=== PATIENT | female | born 1985 | race Caucasian/White ===

== ENCOUNTER 2017-12-10 09:59 | Emergency (ER) | payer MEDICAID ==
[~2017-12-10] VITALS: Ht 149.9 cm; Wt 95.1 kg
[~2017-12-10 09:59] MED LIST: ACET325T14 PO; ONDA4TAB7 PO; OXYC-302 PO; PNV1TABL47 PO
[2017-12-10 10:03] VITALS: BP 148/86
[2017-12-10] MEDS ORDERED: ALBU0.63 NEB (10:22)
== END 2017-12-10 11:20 | disposition home or self-care (01) ==
LOC: ED 10:38
DX: H66.003 Acute suppurative otitis media without spontaneous rupture of ear drum, bilateral (principal); H81.399 Other peripheral vertigo, unspecified ear; J02.0 Streptococcal pharyngitis; Z87.891 Personal history of nicotine dependence; Z88.0 Allergy status to penicillin
CPT/HCPCS: 99283

== ENCOUNTER 2018-06-15 14:38 | Emergency (ER) | payer MEDICAID ==
[~2018-06-15] VITALS: Ht 149.9 cm; Wt 96.2 kg
[~2018-06-15 14:38] MED LIST changes: +ALBU0.63 NEB; +CALC300T5 PO
[2018-06-15 14:40] VITALS: BP 123/78
== END 2018-06-15 18:33 | disposition home or self-care (01) ==
LOC: ED 17:48
DX: M25.552 Pain in left hip (principal); M25.562 Pain in left knee; M79.672 Pain in left foot; M25.572 Pain in left ankle and joints of left foot; G80.9 Cerebral palsy, unspecified; Z88.1 Allergy status to other antibiotic agents; Z88.6 Allergy status to analgesic agent; Z88.8 Allergy status to other drugs, medicaments and biological substances; Z87.891 Personal history of nicotine dependence
CPT/HCPCS: 72110; 72190; 99284

== ENCOUNTER 2018-07-22 21:22 | Emergency (ER) | payer MEDICAID ==
[~2018-07-22] VITALS: Ht 149.9 cm; Wt 105.0 kg
[2018-07-22 21:32] VITALS: BP 135/95
== END 2018-07-22 23:22 | disposition home or self-care (01) ==
LOC: ED 23:16
DX: B34.9 Viral infection, unspecified (principal); Z87.891 Personal history of nicotine dependence
CPT/HCPCS: 71046; 99284

== ENCOUNTER 2018-09-14 21:09 | Emergency (ER) | payer MEDICAID, OTHER ==
[~2018-09-14] VITALS: Ht 149.9 cm; Wt 96.9 kg
[2018-09-14 21:14] VITALS: BP 131/95
== END 2018-09-14 22:47 | disposition home or self-care (01) ==
LOC: ED 22:41
DX: S83.92XA Sprain of unspecified site of left knee, initial encounter (principal); X50.1XXA Overexertion from prolonged static or awkward postures, initial encounter; Y93.89 Activity, other specified; Y92.69 Other specified industrial and construction area as the place of occurrence of the external cause; Y99.8 Other external cause status
CPT/HCPCS: 99283

== ENCOUNTER 2019-02-16 07:30 | Outpatient (CLI) | payer BC | END 2019-02-16 23:59 | disposition home or self-care (01) | LOC: CFH 07:30 | PROVIDERS: ATTEND Family Medicine | DX: Z02.9 Encounter for administrative examinations, unspecified (principal) ==

== ENCOUNTER 2019-09-28 20:11 | Emergency (ER) | payer BC, MEDICAID ==
[~2019-09-28] VITALS: Ht 149.9 cm; Wt 89.9 kg
[2019-09-28 20:52] LABS: BASOPHILS # (AUTO) 0.05 x10^3/uL (0-0.1); BASOPHILS % (AUTO) 1 % (0-1); EOSINOPHILS # (AUTO) 0.12 x10^3/uL (0-0.4); EOSINOPHILS % (AUTO) 2 % (1-7); LYMPHOCYTES # (AUTO) 1.87 x10^3/uL (1-3.4); LYMPHOCYTES % (AUTO) 23 % (22-44); MD NO; MEAN CORPUSCULAR HEMOGLOBIN 30.9 pg (27.0-34.8); MEAN CORPUSCULAR HGB CONC 33.3 g/dL (32.4-35.8); MEAN CORPUSCULAR VOLUME 92.9 fL (80-100); MEAN PLATELET VOLUME 8.9 fL (7.4-10.4); MONOCYTES % (AUTO) 5 % (2-9); NEUTROPHILS # (AUTO) 5.58 x10^3/uL (1.8-6.8); NEUTROPHILS % (AUTO) 70 % (42-75); PLATELET COUNT 258 x10^3/uL (130-400); RED CELL DISTRIBUTION WIDTH 12.7 % (9.6-15.2)
[2019-09-28 21:04] LABS: ALANINE AMINOTRANSFERASE 26 U/L (12-78); ALBUMIN 3.6 g/dL (3.4-5.0); ANION GAP 7 mmol/L (5-15); CALCIUM 8.6 mg/dL (8.5-10.1); CHLORIDE 108 mmol/L (98-107); CREATININE 0.86 mg/dL (0.55-1.02)
[2019-09-28 21:08] LABS: ALKALINE PHOSPHATASE 68 U/L (45-117); BILIRUBIN,TOTAL 0.4 mg/dL (0.2-1.0); TOTAL PROTEIN 7.4 g/dL (6.4-8.2); TROPONIN I < 0.015 ng/mL (0.000-0.045)
--- NOTE | 2019-09-28 23:55 | NUR ---
pt to room from [facility] [place]
--- NOTE | 2019-09-29 01:00 | NUR ---
PT D/C HOME WITH RX
[2019-09-29 01:07] VITALS: BP 130/65
== END 2019-09-29 01:10 | disposition home or self-care (01) ==
LOC: ED 09-29 00:50
DX: J06.9 Acute upper respiratory infection, unspecified (principal); F17.210 Nicotine dependence, cigarettes, uncomplicated
CPT/HCPCS: 36415; 71046; 80053; 83880; 84484; 85025; 93005; 99284

== ENCOUNTER 2019-10-16 16:58 | Emergency (ER) | payer MEDICAID ==
[~2019-10-16] VITALS: Ht 149.9 cm; Wt 88.4 kg
--- NOTE | 2019-10-16 17:58 | NUR ---
Pt to room from lobby.
--- NOTE | 2019-10-16 18:02 | NUR ---
PT TO ROOM FROM LOBBY, CHANGED INTO GOWN, UPRIGHT ON GURNEY AWAKE & COMFORTABLE, RESPONDS APPROP TO STAFF, NAD, COMFORT MEASURES PROVIDED, CALL LIGHT WITHIN REACH.
--- NOTE | 2019-10-16 18:52 | NUR ---
report given to aakash
--- NOTE | 2019-10-16 19:02 | NUR ---
Report received from GUZMAN Pressley. This RN to assume care.
[2019-10-16 19:27] LABS: BASOPHILS # (AUTO) 0.06 x10^3/uL (0-0.1); BASOPHILS % (AUTO) 1 % (0-1); EOSINOPHILS # (AUTO) 0.17 x10^3/uL (0-0.4); EOSINOPHILS % (AUTO) 2 % (1-7); LYMPHOCYTES % (AUTO) 30 % (22-44); MD NO; MEAN CORPUSCULAR HEMOGLOBIN 31.1 pg (27.0-34.8); MEAN CORPUSCULAR HGB CONC 33.1 g/dL (32.4-35.8); MEAN CORPUSCULAR VOLUME 93.8 fL (80-100); MEAN PLATELET VOLUME 8.9 fL (7.4-10.4); MONOCYTES # (AUTO) 0.42 x10^3/uL (0.2-0.8); MONOCYTES % (AUTO) 5 % (2-9); NEUTROPHILS # (AUTO) 5.76 x10^3/uL (1.8-6.8); NEUTROPHILS % (AUTO) 63 % (42-75); PLATELET COUNT 274 x10^3/uL (130-400); RED CELL DISTRIBUTION WIDTH 12.6 % (9.6-15.2)
[2019-10-16 19:30] LABS: ALBUMIN 3.5 g/dL (3.4-5.0); ANION GAP 7 mmol/L (5-15); CALCIUM 8.5 mg/dL (8.5-10.1); CHLORIDE 110 mmol/L (98-107)
[2019-10-16 19:34] LABS: ALANINE AMINOTRANSFERASE 21 U/L (12-78); ALKALINE PHOSPHATASE 61 U/L (45-117); BILIRUBIN,TOTAL 0.5 mg/dL (0.2-1.0); CREATININE 0.79 mg/dL (0.55-1.02); TOTAL PROTEIN 7.1 g/dL (6.4-8.2)
--- NOTE | 2019-10-16 20:30 | NUR ---
Attempted straight cath x2. Unable to obtain at this time. Will consult physician.
--- NOTE | 2019-10-16 20:30 | NUR ---
MINI CATH SPECIMEN OBTAINED AND WALKED TO LAB, PT TOLERATE WELL, WARM BLANKETS GIVEN.
[2019-10-16 20:43] LABS: MICROSCOPIC NOT IND
[2019-10-16 20:44] LABS: CULTURE INDICATED? NO
[2019-10-16 21:00] VITALS: BP 121/60
== END 2019-10-16 21:27 | disposition home or self-care (01) ==
LOC: ED 18:19
DX: N92.1 Excessive and frequent menstruation with irregular cycle (principal)
CPT/HCPCS: 36415; 76830; 80053; 81003; 81025; 85025; 99284

== ENCOUNTER 2021-06-17 08:23 | Emergency (ER) | payer MEDICAID ==
[~2021-06-17 08:23] MED LIST changes: -OXYC-302 PO; +OXYC1TAB12 PO
--- NOTE | 2021-06-17 09:30 | NUR ---
PT HAS CO NAUSEA AND DIZZINESS. PT WAS RECENT ADMIT FOR PNEUMONIA AT [facility] AND FEELS ANXIOUS. PT NOT IN RESP DISTRESS, DENIES CP OR SOB.
[2021-06-17] MEDS ORDERED: MECLIZINE CHEWABLE 25 MG TAB ONE (10:15)
[2021-06-17] MEDS ORDERED: ONDANSETRON ODT 4 MG ONE (10:15)
[2021-06-17] MEDS ORDERED: ONDANSETRON ODT 4 MG PO ONE (10:30)
[2021-06-17] MEDS ORDERED: MECLIZINE CHEWABLE 25 MG TAB PO ONE (10:30)
[2021-06-17 10:44] LABS: BASOPHILS % (AUTO) 1 % (0-1); EOSINOPHILS % (AUTO) 0 % (1-7); LYMPHOCYTES % (AUTO) 16 % (22-44); MEAN CORPUSCULAR HEMOGLOBIN 31.6 pg (27.0-34.8); MEAN CORPUSCULAR HGB CONC 34.5 g/dL (32.4-35.8); MEAN PLATELET VOLUME 8.1 fL (7.4-10.4); MONOCYTES % (AUTO) 5 % (2-9); NEUTROPHILS % (AUTO) 77 % (42-75); PLATELET COUNT 267 x10^3/uL (130-400); RED BLOOD COUNT 4.62 x10^6/uL (3.82-5.3); RED CELL DISTRIBUTION WIDTH 13.1 % (9.6-15.2)
[2021-06-17 10:52] LABS: ALANINE AMINOTRANSFERASE 31 U/L (12-78); ALBUMIN 3.5 g/dL (3.4-5.0); ANION GAP 5 mmol/L (5-15); CALCIUM 9.1 mg/dL (8.5-10.1); CHLORIDE 108 mmol/L (98-107); CREATININE 0.83 mg/dL (0.55-1.02)
[2021-06-17 10:54] LABS: ALKALINE PHOSPHATASE 62 U/L (45-117); BILIRUBIN,TOTAL 0.3 mg/dL (0.2-1.0); TOTAL PROTEIN 7.4 g/dL (6.4-8.2)
--- NOTE | 2021-06-17 11:30 | NUR ---
PT SLEEPING AT THIS TIME. VSS
[2021-06-17 11:36] VITALS: BP 134/69
--- NOTE | 2021-06-17 11:37 | NUR ---
MD AT BEDSIDE TO DISCUSS POC. TO BE DC
--- NOTE | 2021-06-17 11:38 | NUR ---
Patient given discharge instructions and they have confirmed that they understand the instructions. Patient ambulatory with steady gait.
== END 2021-06-17 11:57 | disposition home or self-care (01) ==
LOC: ED 10:33
DX: R42 Dizziness and giddiness (principal); R06.02 Shortness of breath; Z87.891 Personal history of nicotine dependence
CPT/HCPCS: 36415; 71045; 80053; 85025; 99284; Q0162